=== PATIENT | female | born 1970 | race Asian ===

== ENCOUNTER → 2016-10-01 | Emergency (ER) | payer SELFPAY ==
[2016-10-01 11:05] VITALS: BP 102/61
[2016-10-01 11:13] LABS: Hematocrit 36 % (35-47); Hemoglobin 12.2 g/dl (12.0-16.0); Mean Corpuscular HGB Conc 34 g/dl (31-36); Mean Corpuscular Hemoglobin 32 pg (27-31); Mean Corpuscular Volume 96 fL (80-97); Mean Platelet Volume 8 um3 (7.4-10.4); Red Blood Count 3.76 10^6/ul (4.0-5.4); Red Cell Distribution Width 12 % (10.5-15)
--- NOTE | 2016-10-01 11:20 | RAD ---
INDICATION: Syncope, head injury. COMPARISON: There are no prior studies available for comparison. TECHNIQUE: Contiguous axial sections of the brain were obtained from the skull base to the vertex without contrast. FINDINGS: The ventricles, cisterns and sulci are within normal limits. No significant focal abnormality or mass effect is seen. There is no evidence for hemorrhage. No significant focal osseous abnormality is seen. The visualized portion of the paranasal sinuses and mastoid air cells appear clear. IMPRESSION: NO EVIDENCE FOR ACUTE INTRACRANIAL ABNORMALITY.
--- NOTE | 2016-10-01 11:37 | ED ---
Syncope/Near Syncope - HPI Summary HPI Summary: Patient presents with multiple complaints. Last week she stood up and felt like she was going to faint. Two days later the same thing happened and she did faint. She fell to the ground and hit her head on the floor. She has left hip pain and head pain from fall but no bruising or abrasions. She admits she does not eat or drink as much as she should. She denies CP, SOB, COLLADO, lightheadness now, palpitations, N/V/D, fevers or recent illness. She has not spoken with her PCP regarding these concerns. She denies known heart disease. - History Of Current Complaint Chief Complaint: EDGeneral Time Seen by Provider: 10/01/16 10:26 Hx Obtained From: Patient Onset/Duration: Sudden Onset Timing: Seconds Context: Unwitnessed Activity At Onset: Exertion Associated Head Trauma: No Aggravating Factor(s): Position Change Alleviating Factor(s): Spontaneous Resolution Associated Signs And Symptoms: Lightheadedness - at time of the events but not in general, Pain - left hip and forehead - Risk Factors Cardiac Risk Factors: Negative Dysrhythmia Risk Factors: Age Greater Than 45 - Allergies/Home Medications Allergies/Adverse Reactions: Allergies Allergy/AdvReac Type Severity Reaction Status Date / Time No Known Allergies Allergy Verified 10/01/16 10:37 PMH/Surg Hx/FS Hx/Imm Hx Previously Healthy: Yes - Cancer History Hx Chemotherapy: No Hx Radiation Therapy: No Infectious Disease History: No Infectious Disease History: Denies: Traveled Outside the [place] in Last 30 Days - Family History Known Family History: Positive: None - Social History Occupation: Unemployed Alcohol Use: None Substance Use Type: Reports: None Smoking Status (MU): Former Smoker Review of Systems Negative: Photophobia, Blurred Vision Positive: Myalgia - left hip Negative: Bruising Negative: Weakness, Paresthesia, Numbness All Other Systems Reviewed And Are Negative: Yes Physical Exam Triage Information Reviewed: Yes Vital Signs On Initial Exam: Initial Vitals Temp Pulse Resp BP Pulse Ox 98.4 F 58 18 103/60 100 10/01/16 09:24 10/01/16 09:24 10/01/16 09:24 10/01/16 09:24 10/01/16 09:24 Vital Signs Reviewed: Yes Appearance: Positive: Well-Appearing, No Pain Distress, Thin Skin: Positive: Warm, Skin Color Reflects Adequate Perfusion, Dry, Soft Head/Face: Positive: Normal Head/Face Inspection Eyes: Positive: EOMI, TAMARA, Conjunctiva Clear ENT: Positive: Hearing grossly normal, Pharynx normal, TMs normal Neck: Positive: Supple, Nontender, No Lymphadenopathy Respiratory/Lung Sounds: Positive: Clear to Auscultation, Breath Sounds Present Cardiovascular: Positive: RRR Abdomen Description: Positive: Nontender, Soft Bowel Sounds: Positive: Present Musculoskeletal: Positive: Strength/ROM Intact. Negative: Edema Left, Edema Right Neurological: Positive: Sensory/Motor Intact, Alert, Oriented to Person Place, Time, CN Intact II-III, NV Bundle Intact Distally, Normal Gait Psychiatric: Positive: Affect/Mood Appropriate AVPU Assessment: Alert - Nhan Coma Scale Coma Scale Total: 15 Diagnostics - Vital Signs Vital Signs Temp Pulse Resp BP Pulse Ox 10/01/16 11:05 24 10/01/16 11:04 102/61 10/01/16 10:29 98.4 F 58 16 103/60 98 10/01/16 09:24 98.4 F 58 18 103/60 100 - Laboratory Lab Results: Lab Results 10/01/16 Range/Units 11:03 WBC 4.0 (3.5-10.8) 10^3/ul RBC 3.76 L (4.0-5.4) 10^6/ul Hgb 12.2 (12.0-16.0) g/dl Hct 36 (35-47) % MCV 96 (80-97) fL MCH 32 H (27-31) pg MCHC 34 (31-36) g/dl RDW 12 (10.5-15) % Plt Count 192 (150-450) 10^3/ul MPV 8 (7.4-10.4) um3 Neut % (Auto) 59.0 (38-83) % Lymph % (Auto) 30.3 (25-47) % [place] % (Auto) 7.9 (1-9) % Eos % (Auto) 1.3 (0-6) % Baso % (Auto) 1.5 (0-2) % Absolute Neuts (auto) 2.4 (1.5-7.7) 10^3/ul Absolute Lymphs (auto) 1.2 (1.0-4.8) 10^3/ul Absolute Monos (auto) 0.3 (0-0.8) 10^3/ul Absolute Eos (auto) 0.1 (0-0.6) 10^3/ul Absolute Basos (auto) 0.1 (0-0.2) 10^3/ul Absolute Nucleated RBC 0.01 10^3/ul Nucleated RBC % 0.2 Result Diagrams: 10/01/16 11:03 10/01/16 11:03 Lab Statement: Any lab studies that have been ordered have been reviewed, and results considered in the medical decision making process. - CT No standard instances CT Interpretation: No Acute Changes CT Interpretation Completed By: Radiologist - EKG No standard instances Cardiac Rate: Bradycardia EKG Rhythm: Sinus Rhythm ST Segment: Normal Ectopy: None Course/Dx - Diagnoses Differential Diagnosis/HQI/PQRI: Positive: Dysrhythmia, Hyperventilation, Hypoglycemia, Hypovolemia, Vasovagal Episode Provider Diagnoses: Vasovagal episode, Left hip pain Discharge - Discharge Plan Condition: Stable Disposition: HOME Patient Education Materials: Near Syncope (ED) Referrals: Johnna Galan MD [Primary Care Provider] - Additional Instructions: Please call your primary care provider for an appointment in 1-3 days. Drink extra fluids. Return to the emergency department if symptoms worsen.
[2016-10-01 12:04] LABS: Albumin 3.9 g/dL (3.2-5.2); Calcium 8.9 mg/dL (8.6-10.3); EGFR African American 135.2 (>60); EGFR Non-African American 105.1 (>60); Globulin 2.2 g/dL (2-4); Potassium 4.3 mmol/L (3.5-5.0); Total Bilirubin 0.6 mg/dL (0.2-1.0); Total Protein 6.1 g/dL (6.4-8.9)
== END | disposition home or self-care (01) ==
LOC: ED 09:19
DX: R55 Syncope and collapse (principal); Z87.891 Personal history of nicotine dependence
CPT/HCPCS: 36415; 70450; 80053; 85025; 93005; 99282

== ENCOUNTER 2018-05-05 08:05 | Emergency (ER) | payer BC ==
[2018-05-05 08:21] VITALS: BP 110/66
--- NOTE | 2018-05-05 08:42 | UC ---
UC General HPI - HPI Summary HPI Summary: Patient requesting prophylactic Tamiflu. was diagnosed today with influenza A. States she's been coughing for a couple of weeks and has had a runny nose but denies any fever, nausea/vomiting, headache, myalgias or joint pains. Up-to-date flu shot. - History of Current Complaint Chief Complaint: UCRespiratory Stated Complaint: FLU-LIKE SYMPTOMS Time Seen by Provider: 05/05/18 08:19 Hx Obtained From: Patient Hx Last Menstrual Period: 04/24/18 Onset/Duration: Lasting Weeks, Still Present Timing: Constant Onset Severity: Mild Current Severity: Mild Pain Intensity: 0 Associated Signs & Symptoms: Positive: Cough - Allergy/Home Medications Allergies/Adverse Reactions: Allergies Allergy/AdvReac Type Severity Reaction Status Date / Time No Known Allergies Allergy Verified 10/01/16 10:37 Home Medications: Home Medications Loratadine [Claritin] 05/05/18 [History] PMH/Surg Hx/FS Hx/Imm Hx Previously Healthy: Yes - Surgical History Surgical History: None - Family History Known Family History: Positive: None - Social History Alcohol Use: None Substance Use Type: None Smoking Status (MU): Former Smoker Review of Systems All Other Systems Reviewed And Are Negative: Yes Constitutional: Positive: Negative ENT: Positive: Nasal Discharge Respiratory: Positive: Cough Cardiovascular: Positive: Negative Gastrointestinal: Positive: Negative Physical Exam Triage Information Reviewed: Yes Appearance: Well-Appearing, No Pain Distress, Well-Nourished Vital Signs: Initial Vital Signs Temp 98.2 F 05/05/18 08:16 Pulse 63 05/05/18 08:16 Resp 18 05/05/18 08:16 BP 110/66 05/05/18 08:16 Pulse Ox 100 05/05/18 08:16 Vital Signs Reviewed: Yes Eyes: Positive: Conjunctiva Clear ENT: Positive: Hearing grossly normal, Pharynx normal, TMs normal Neck: Positive: Supple, Nontender, No Lymphadenopathy Respiratory Exam: Normal Cardiovascular Exam: Normal Abdomen Description: Positive: Soft Musculoskeletal: Positive: No Edema Neurological: Positive: Alert Psychological: Positive: Age Appropriate Behavior Skin: Negative: Rashes Course/Dx - Course Course Of Treatment: Prophylactic Tamiflu provided today. - Diagnoses Provider Diagnosis: Upper respiratory infection Discharge - Sign-Out/Discharge Documenting (check all that apply): Patient Departure All imaging exams completed and their final reports reviewed: No Studies - Discharge Plan Condition: Stable Disposition: HOME Prescriptions: Oseltamivir CAP* [Tamiflu CAP*] 75 mg PO DAILY #10 cap Patient Education Materials: Influenza (ED), Upper Respiratory Infection (ED) Referrals: Johnna Galan MD [Primary Care Provider] - If Needed Additional Instructions: GIVEN YOUR CLOSE HOUSEHOLD CONTACT WITH POSITIVE FLU WILL GIVE PROPHYLACTIC TAMIFLU. TAKE THE MEDICINE ONCE DAILY FOR THE FULL 10 DAYS. - Billing Disposition and Condition Condition: STABLE Disposition: Home
== END 2018-05-05 08:40 | disposition home or self-care (01) ==
LOC: UCEAST 08:05
DX: J06.9 Acute upper respiratory infection, unspecified (principal); Z87.891 Personal history of nicotine dependence
CPT/HCPCS: 99212; G0463

== ENCOUNTER 2018-09-28 09:46 | Emergency (ER) | payer BC ==
[2018-09-28 10:22] VITALS: BP 100/48
--- NOTE | 2018-09-28 11:18 | UC ---
Skin Complaint HPI - HPI Summary HPI Summary: Pt presents for eval of rash. Pt states first noted right le 5 days ago. Pt states intermittenty itchy. Pt now with simiarl on left LE and left hand. Pt has used benadrl ointment without relief. Pt states was in her garden last week. states itching. No sob, no facial edema. Pt states she had a rash several years ago and was told was a "blood infectin" pt was not admitted - states had "red streak" not immunocompromised. - History of Current Complaint Chief Complaint: UCRash Time Seen by Provider: 09/28/18 11:11 Stated Complaint: RASH Hx Obtained From: Patient Hx Last Menstrual Period: 04/24/18 Pain Intensity: 0 - Allergy/Home Medications Allergies/Adverse Reactions: Allergies Allergy/AdvReac Type Severity Reaction Status Date / Time No Known Allergies Allergy Verified 09/28/18 10:22 Home Medications: Home Medications Diphenhydramine HCl/Zinc Acet [Benadryl Itch Cooling [place]] 59 ml TP 09/28/18 [ History] PMH/Surg Hx/FS Hx/Imm Hx Previously Healthy: Yes - Surgical History Surgical History: None - Family History Known Family History: Positive: Non-Contributory - Social History Occupation: Unemployed Alcohol Use: None Substance Use Type: None Smoking Status (MU): Former Smoker Review of Systems All Other Systems Reviewed And Are Negative: Yes Constitutional: Positive: Negative Skin: Positive: Rash Eyes: Positive: Negative ENT: Positive: Negative Respiratory: Negative: Shortness Of Breath Physical Exam - Summary Physical Exam Summary: Vital Signs Reviewed: Yes low grade temp A+Ox3, no distress, Eyes: Conjunctiva Clear, TAMARA. EOM intact and full ENT: Hearing grossly normal TM x 2 clear, turbinates wnl, mmoist, uvula midline , no exudate, mild erythema posterior pharynx Neck: Positive: Supple Respiratory: Positive: No respiratory distress, No accessory muscle use + CTA throughout no w/r Cardiovascular: RRR nl s1, s2 no m/r CBT <2 sec abd soft + BS nt/nd no guarding, no distension Musculoskeletal Exam: VALLE x 4 without difficulty Strength Intact, ROM Intact Neurological: Positive: Alert, + sensation throughout Psychological: Positive: Normal Response To Family Skin: Positive: Pt with a raised, clustered, puriritic rash on right medial mid tib./fib 3x3 cm, left LE 2x2 cm and dorsum left hant - small veislces, raised c/ w contact dermatitis Triage Information Reviewed: Yes Vital Signs: Initial Vital Signs Temp 98.3 F 09/28/18 10:18 Pulse 72 09/28/18 10:18 Resp 18 09/28/18 10:18 BP 100/48 09/28/18 10:18 Pulse Ox 100 09/28/18 10:18 Course/Dx - Course Course Of Treatment: pt withrahs on LE Right first, and left dorsum hand with itchy raised rash no other copmlaints suspect related to contact dermatitis morales tart pred table, benadryl with precuations avoid heat/nsaid return precautions derm referral - Diagnoses Provider Diagnosis: Contact dermatitis Discharge - Sign-Out/Discharge Documenting (check all that apply): Patient Departure All imaging exams completed and their final reports reviewed: No Studies - Discharge Plan Condition: Stable Disposition: HOME Prescriptions: predniSONE TAB* [Deltasone 20 MG TAB*] 20 mg PO DAILY #13 tab Patient Education Materials: Contact Dermatitis (ED) Referrals: [facility] [Provider Group] (Call tomorrow to schedule a follow-up this week ) Johnna Galan MD [Primary Care Provider] - Additional Instructions: - Take prednisone exactly as prescribed until gone - starting today - Okay to take Benadryl (1-2 tablets) every 6 hours as needed. This medication may cause drowsiness - do NOT drive, operate machinery or drink alcohol while taking Benadryl -Avoid getting over heated (hot showers, hot tubs, exercise) for at least 48 hours - Try to avoid aspirin, NSAIDs (Motrin, Aleve, Naprosyn) for 2-3 days - Okay to apply cool compresses to the area of injury -Contact your doctor or return here with questions or concerns you have also been given the contact information for a allergist/immunologist - okay to call tomorrow to schedule a folow-up appointment - Billing Disposition and Condition Condition: STABLE Disposition: Home
== END 2018-09-28 11:39 | disposition home or self-care (01) ==
LOC: UCEAST 09:46
DX: L25.9 Unspecified contact dermatitis, unspecified cause (principal); Z87.891 Personal history of nicotine dependence
CPT/HCPCS: 99212; G0463

== ENCOUNTER 2019-06-21 09:43 | Emergency (ER) | payer BC ==
[2019-06-21 09:55] VITALS: BP 100/53
--- NOTE | 2019-06-21 10:07 | UC ---
FLU HPI - HPI Summary HPI Summary: Patient is a 48yo female presenting with "cold symptoms" x10 days that she feels have worsened over the past 3 days. States nasal congestion and chest congestion are worse and her nose feels completely clogged. States sob at times. Notes "wet cough" that occurs "day and night." Denies wheezing. Denies known fevers. Denies decreased appetite. - History of Current Complaint Chief Complaint: UCRespiratory Stated Complaint: COLD SYMPTOMS Hx Obtained From: Patient Hx Last Menstrual Period: last week Pain Intensity: 3 Pain Scale Used: 0-10 Numeric - Allergy/Home Medications Allergies/Adverse Reactions: Allergies Allergy/AdvReac Type Severity Reaction Status Date / Time beef derived (bovine) Allergy Difficulty Verified 06/21/19 09:51 Breathing Home Medications: Home Medications Dm/PE/Acetaminophen/Doxylamine [Vicks Dayquil-Nyquil Cold-Flu] 1 tab PO ONCE PRN 06/21/19 [History Confirmed 06/21/19] Guaifenesin 1 dose PO ONCE PRN 06/21/19 [History Confirmed 06/21/19] PMH/Surg Hx/FS Hx/Imm Hx - Surgical History Surgical History: None - Family History Known Family History: Positive: None, Non-Contributory - Social History Alcohol Use: None Substance Use Type: None Smoking Status (MU): Former Smoker Review of Systems All Other Systems Reviewed And Are Negative: Yes Constitutional: Positive: Fatigue ENT: Positive: Sore Throat, Nasal Discharge, Sinus Congestion, Sinus Pain/ Tenderness Respiratory: Positive: Shortness Of Breath - intermittent, Cough Cardiovascular: Positive: Negative Gastrointestinal: Positive: Negative. Negative: Vomiting, Nausea Musculoskeletal: Negative: Myalgia Neurological/Mental Status: Positive: Negative Physical Exam - Summary Physical Exam Summary: Vital Signs Reviewed: Yes A+Ox3, no distress Eyes: Conjunctiva Clear ENT: Hearing grossly normal, TM x 2 clear, moist, uvula midline, no exudate, + pharygneal erythema Neck: Positive: Supple Respiratory: Positive: No respiratory distress, No accessory muscle use, + diffuse faint expiratory wheezes, no rales/rhonchi Cardiovascular: RRR nl s1, s2 no m/r Musculoskeletal Exam: VALLE x 4 without difficulty Neurological: Positive: Alert Psychological: Positive: age appropriate behavior Skin: Positive: no rash, no ecchymosis Vital Signs: Initial Vital Signs Temp 98.6 F 06/21/19 09:48 Pulse 57 06/21/19 09:48 Resp 18 06/21/19 09:48 BP 100/53 06/21/19 09:48 Pulse Ox 99 06/21/19 09:48 Diagnostics - Radiology chest Radiology Interpretation Completed By: Radiologist Summary of Radiographic Findings: IMPRESSION: NO ACTIVE CARDIOPULMONARY DISEASE. Flu Course/Dx - Course Course Of Treatment: Negative CXR. Negative rapid flu. Educated patient on acute bronchitis and treated with albuterol inhaler and prednisone. I instructed to follow up with pcp if symptoms worsen or persist. Patient voiced understanding and agreed with treatment plan. - Differential Dx/Diagnosis Provider Diagnosis: Acute bronchitis with bronchospasm Discharge ED - Sign-Out/Discharge Documenting (check all that apply): Patient Departure All imaging exams completed and their final reports reviewed: Yes - Discharge Plan Condition: Stable Disposition: HOME Prescriptions: Albuterol HFA INHALER* [Ventolin HFA Inhaler*] 1 - 2 puff INH Q6H PRN #1 mdi PRN Reason: Shortness Of Breath predniSONE 20 mg TAB [Deltasone 20 MG TAB*] 40 mg PO DAILY #10 tab Patient Education Materials: Acute Bronchitis (ED), Albuterol (By breathing), Prednisone (By mouth) Referrals: Johnna Galan MD [Primary Care Provider] - If Needed Additional Instructions: Take 40mg prednisone daily for 5 days. Use the inhaler as needed for shortness of breath and wheezing. Increase your fluid intake. Follow up with your primary care provider if symptoms do not improve within 7- 10 days. - Billing Disposition and Condition Condition: STABLE Disposition: Home
[2019-06-21 10:47] LABS: Influenza A Molecular Negative (Negative); Influenza B Molecular Negative (Negative)
== END 2019-06-21 11:20 | disposition home or self-care (01) ==
LOC: UCEAST 09:43
DX: J20.9 Acute bronchitis, unspecified (principal); R09.81 Nasal congestion; Z91.030 Bee allergy status; Z87.891 Personal history of nicotine dependence
CPT/HCPCS: 71046; 99212; G0463